=== PATIENT | male | born 1995 | race Caucasian/White ===

== ENCOUNTER 2018-01-02 01:59 | Inpatient (IN) | payer SELFPAY ==
[2018-01-02] MEDS ORDERED: methylPREDNISolone Sod Succ/PF 125 MG/2 ML VIAL IVP ONE (06:11)
--- NOTE | 2018-01-02 07:44 | HP ---
DATE OF ADMISSION: 01/02/2018. TIME OF EVALUATION: 5:40 a.m. CODE STATUS: FULL. PRIMARY CARE PHYSICIAN: No PCP. CHIEF COMPLAINT: Inability to breathe properly and drooling. HISTORY OF PRESENT ILLNESS: A 22 years old male patient with no significant past medical history. T he patient came to the hospital after having severe upper respiratory symptoms including inability to breathe properly, change in voice, associated with drooling, odynophagia, patient reporting that he was trying to find a throat infection by himself and since yesterday, he had the feeling that he was not able to breathe, he had wheezing through his throat, and he was unable to even swallow his saliva . The patient went to the ER, sleeping dose Decadron was given, antibiotics, clindamycin and has imp roved. ENT has been consulted and will see the patient for further recommendations. We will monitor the patient in IMCU since the patient has had significant recovery, had no other relieving factors t ceron the medical treatment. REVIEW OF SYSTEMS: Constitutional: The patient had fever, chills, generalized weakness. Respiratory: The patient had a change in voice, inability to swallow, drooling. Cardiovascular: No chest pain, palpitation, or shortness of breath. Gastrointestinal: No nausea, no vomiting, no diar antony, no abdominal pain. [employer]: No dizziness, headache or felt lightheaded. Genitourinary: No burni ng with urination. Extremities: No leg swelling. All other systems were reviewed and negative exce pt for the findings mentioned above. PAST MEDICAL HISTORY: As mentioned above. SOCIAL HISTORY: Lives with mother. PAST SURGICAL HISTORY: None reported. FAMILY HISTORY: Reviewed and noncontributory for current presentation. ALLERGIES: No known drug allergies. HOME MEDICATIONS: None. PHYSICAL EXAMINATION: VITAL SIGNS: On presentation, the patient had a blood pressure of 124/69 with a pulse of 64, respira tory rate was 20, oxygen saturation 99 on room air. GENERAL: Patient is alert, oriented, not in acute distress. HEENT: Eyes: Normal conjunctivae. Mucous oral mucosa. Anicteric. NECK: No JVD. RESPIRATORY: Bilateral air entry. No rales, no wheezing, no stridor, symmetric expansion. CARDIOVASCULAR: Normal rate, regular rhythm, no murmurs, no gallop. No edema. ABDOMEN: Soft, normal bowel sounds. MUSCULOSKELETAL: Baseline range of motion and strength. No tenderness. SKIN: Warm and intact. No pallor, no rash. NEUROLOGIC: No evidence of any new focal weakness, ____. Cranial nerves seem to be intact. PSYCHIATRIC: Good mood. He is alert and oriented to my judgment. IMAGING: CT was done prior to transfer. The patient has moderate epiglottitis and I have discussed with the ER physician. LABORATORY DATA: I have discussed with the ER physician where no significant ____. They are in the paper chart and transfer summary. ASSESSMENT AND PLAN: The patient was placed in IMCU due to life threatening. 1. Acute parotitis, patient has been treated on steroids and antibiotics. Symptoms have significant ly improved. We will continue antibiotics, ENT has been consulted with Dr. Hraris, we will follow re commendations. If patient continues to improve, likely to be able to be downgraded to the floor. 2. Deep venous thrombosis prophylaxis. The patient is ambulatory.
[2018-01-02] MEDS: cefTRIAXone\\ROCEPHIN 1 GM in Sodium Chloride 0.9% 100 ML IVPB SCH (08:06)
[2018-01-02] MEDS: Sodium Chloride 0.9% 1,000 ML IV SCH ×2 (08:06→16:22)
--- NOTE | 2018-01-02 09:14 | PDOC.PN ---
- Subjective Encounter Start Date: 01/02/18 Encounter Start Time: 09:13 Mr. Graham was seen today in follow-up of epiglottis. He says he feels better. He denies any sore throat. He denies dyspnea, and says he still has some trouble with swallowing. - Objective Resuscitation Status: Resuscitation Status FULL:Full Resuscitation MAR Reviewed: Yes Vital Signs & Weight: Vital Signs (12 hours) Temp Pulse Resp Pulse Ox 01/02/18 07:20 97.7 F 51 L 9 L 97 01/02/18 06:11 97.7 F Weight Weight 2.356 oz Phys Exam - Physical Examination HEENT: PERRLA, oral pharynx no lesions no stridor Respiratory: no wheezing, no rales, no rhonchi, clear to auscultation bilateral Cardiovascular: RRR, no significant murmur Gastrointestinal: soft, non-tender, positive bowel sounds Musculoskeletal: no edema Dx/Plan (1) Acute epiglottitis Code(s): J05.10 - ACUTE EPIGLOTTITIS WITHOUT OBSTRUCTION Status: Acute (2) Tinea corporis Code(s): B35.4 - TINEA CORPORIS Status: Acute - Plan * Acute Epiglottitis- he is improving with antibiotics, and Steroids Records from [facility] in [place] were reviewed * Will await ENT evaluation * With continued improvement, his status may be downgraded to medical later this evening. * Await repeat CBC, and BMP * Tinea Corporus- Nizoral cream
[2018-01-02] MEDS: Vancomycin HCl 1 GM in Premix Bag 1 BAG IVPB SCH ×2 (09:28→20:16)
--- NOTE | 2018-01-02 10:29 | CON ---
DATE OF CONSULTATION: 01/02/2018 SERVICE: Pulmonary Medicine. REASON FOR CONSULTATION: Upper airway inflammation. HISTORY OF PRESENT ILLNESS: The patient is a 22-year-old white male with past medical history signif icant for essentially nothing. He was in his usual state of health until he had onset of increasing swelling in the neck. He had a difficult time speaking, swallowing, and phonating. As such, he pres ented to the Emergency Department. He did not have any recent exposures. He was not having any feve rs or chills that precipitated this event. He was given Decadron, antibiotics, and epinephrine. Ult imately, swelling in his neck improved dramatically. He currently denies any chest pain, nausea, vom iting, fevers or chills. He is sleeping and breathing comfortably. I had him swallow some water at bedside. He did fantastic with that and had no significant drooling or dysphagia. Otherwise, there has been no interval change to his condition. PAST MEDICAL HISTORY: None. PAST SURGICAL HISTORY: Tonsillectomy. FAMILY HISTORY: Noncontributory. SOCIAL HISTORY: Negative for significant alcohol, tobacco or illicit drug use. He has no exposure t o chemicals, dusts, asbestos or tuberculosis. He has no known allergies to create these types of iss ues. ALLERGIES: No known drug allergies. MEDICATIONS: List of his inpatient medications were reviewed. No specific updates were made at this time. REVIEW OF SYSTEMS: General, head, ears, eyes, nose, throat, cardiovascular, respiratory, GI, , mus culoskeletal, neurologic and skin is negative except as mentioned in the HPI. PHYSICAL EXAMINATION: VITAL SIGNS: Afebrile, pulse 51, blood pressure 90/50, respirations 13, saturation 97% on room air. GENERAL: The patient is awake, alert, no apparent distress. LUNGS: There is excellent air entry. There are no problems with air movement in or out. There is n o wheezing, rhonchi, or crackles present. HEART: Bradycardic. Regular. ABDOMEN: Soft, nontender, nondistended. Bowel sounds are positive. MUSCULOSKELETAL: No cyanosis or clubbing. There is no pitting in the bilateral lower extremities. NEUROLOGIC: Grossly nonfocal. IMAGING: CT of the neck done prior to transfer demonstrated moderate epiglottitis. ASSESSMENT: 1. Epiglottitis, acute. 2. Dysphagia, associated with #1, resolved. PLAN: At this point, the patient can transition to the medical unit. He will need 1 additional day of observation. If he is doing well, he could be considered for transition home. At this point, the re is no impending respiratory failure identified. Certainly if this type of thing happens again, ad ditional evaluation may be warranted. Pulmonary will continue to follow if he remains in this locati on for any reason.
[2018-01-02] MEDS: Ketoconazole 2% Cream 15 gm Tube TOP SCH ×3 (11:39→20:17)
[2018-01-03] MEDS: Sodium Chloride 0.9% 1,000 ML IV SCH ×3 (02:15→22:15)
[2018-01-03] MEDS: cefTRIAXone\\ROCEPHIN 1 GM in Sodium Chloride 0.9% 100 ML IVPB SCH (05:30)
[2018-01-03 06:02] LABS: #Lymphocytes 2.8 thou/uL (1.20-3.40); #Monocytes 1.5 thou/uL (0.11-0.59); #Neutrophils 10.1 thou/uL (1.40-6.50); %Basophils 0.2 % (0.0-1.0); %Eosinophils 0.3 % (0.0-10.0); %Lymphocytes 19.3 % (21.0-51.0); %Monocytes 10.2 % (0.0-10.0); Mean Corpuscular HGB CONC 34.1 g/dL (32.0-36.0); Mean Corpuscular Hemoglobin 31.5 pg (27.0-31.0); Mean Corpuscular Volume 92.2 fL (78.0-98.0); Mean Platelet Volume 6.6 fL (7.4-10.4); Platelet Count 278 thou/uL (130-400); RBC Distribution Width 11.7 % (11.5-14.5); Red Blood Cell (RBC) Count 3.82 mill/uL (4.70-6.10); White Blood Cell (WBC) Count 14.4 thou/uL (4.8-10.8)
[2018-01-03 06:16] LABS: Anion Gap 10 mmol/L (10-20); BUN (Urea Nitrogen) 20 mg/dL (8.9-20.6); Calc. Creatinine Clearance 0 mL/min (70-130); Calcium 8.9 mg/dL (7.8-10.44); Carbon Dioxide 26 mmol/L (22-29); Chloride 106 mmol/L (98-107); Estimated GFR-MDRD Greater than 90; Glucose 100 mg/dL (70-105); Potassium 4.2 mmol/L (3.5-5.1); Sodium 138 mmol/L (136-145)
--- NOTE | 2018-01-03 08:05 | PDOC.PN ---
- Subjective Encounter Start Date: 01/03/18 Encounter Start Time: 08:03 Mr. Graham was seen today in follow-up of epiglottis. He says he had an episode of chocking last night. He still has throat pain when he tries to swallow. - Objective Resuscitation Status: Resuscitation Status FULL:Full Resuscitation MAR Reviewed: Yes Vital Signs & Weight: Vital Signs (12 hours) Temp Pulse Resp BP BP Pulse Ox 01/03/18 04:00 98.1 F 72 20 114/54 L 98 01/03/18 01:39 88 18 98 01/02/18 23:10 98.4 F 85 12 122/72 100 Weight Weight 2.356 oz Most Recent Monitor Data Heart Rate from ECG 52 NIBP 95/46 NIBP BP-Mean 77 Respiration from ECG 13 SpO2 98 I&O: 01/02/18 01/03/18 01/04/18 06:59 06:59 06:59 Intake Total 1300 Balance 1300 Result Diagrams: 01/03/18 05:43 01/03/18 05:43 Phys Exam - Physical Examination HEENT: PERRLA Respiratory: no wheezing, no rales, no rhonchi, clear to auscultation bilateral no stridor, patient's voice is clear. Cardiovascular: RRR, no significant murmur, no rub Gastrointestinal: soft, non-tender, positive bowel sounds Musculoskeletal: no edema Dx/Plan (1) Acute epiglottitis Code(s): J05.10 - ACUTE EPIGLOTTITIS WITHOUT OBSTRUCTION Status: Acute (2) Tinea corporis Code(s): B35.4 - TINEA CORPORIS Status: Acute - Plan * Acute epiglottitis- will continue IV antibiotics, and steroids * Will continue to monitor in the hospital * ENT was consulted, but will see patient only on emergent basis .
[2018-01-03] MEDS: Vancomycin HCl 1 GM in Premix Bag 1 BAG IVPB SCH ×3 (09:23→22:08)
[2018-01-03] MEDS: Ketoconazole 2% Cream 15 gm Tube TOP SCH ×2 (09:24→21:00)
[2018-01-03] MEDS: Saccharomyces boulardii 250 MG CAP PO SCH (09:24)
[2018-01-03] MEDS: Clindamycin/D5W 600 MG in Premix Bag 1 BAG IVPB SCH ×3 (12:20→20:40)
--- NOTE | 2018-01-03 20:28 | PRG ---
DATE OF SERVICE: 01/03/2018 SERVICE: Pulmonary Medicine. INTERVAL HISTORY: Overnight, the patient had an episode where he started having increasing respirato ry discomfort again. He got . This has essentially completely resolved that. Since last night , he has not had any additional events. He has been up walking the hallways all day today. Denies a ny current chest pain, nausea, vomiting, shortness of breath. His throat discomfort is actually impr oving a little bit. PHYSICAL EXAMINATION: VITAL SIGNS: Afebrile, pulse 77, blood pressure 109/65, respirations 20, saturation 97% on room air. GENERAL: Patient is awake, alert, no apparent distress. LUNGS: Excellent air entry with no prolonged expiratory phase, wheezing, rhonchi or crackles. There is no prolonged expiratory or inspiratory phase today. HEART: Normal rate, regular. ABDOMEN: Soft, nontender, nondistended. Bowel sounds are positive. MUSCULOSKELETAL: No cyanosis or clubbing. No pitting in the bilateral lower extremities. NEUROLOGIC: Grossly nonfocal. ASSESSMENT: 1. Epiglottitis, acute. 2. Dysphagia, associated with epiglottitis, resolved. DISCUSSION AND PLAN: The patient is going to be observed one more night. If remains stable until to [place], he can be considered for transition to p.o. medications and discharge from the hospital. Flynn cavazos will continue to follow while he remains in house.
[2018-01-03 20:59] LABS: Vancomycin, Trough 6.9 ug/mL
[2018-01-04] MEDS: Sodium Chloride 0.9% 1,000 ML IV SCH ×2 (01:10→10:04)
[2018-01-04] MEDS: Clindamycin/D5W 600 MG in Premix Bag 1 BAG IVPB SCH ×2 (02:23→10:04)
[2018-01-04] MEDS: Vancomycin HCl 1 GM in Premix Bag 1 BAG IVPB SCH (05:05)
[2018-01-04] MEDS: cefTRIAXone\\ROCEPHIN 1 GM in Sodium Chloride 0.9% 100 ML IVPB SCH (06:44)
--- NOTE | 2018-01-04 07:25 | PDOC.PN ---
- Subjective Encounter Start Date: 01/04/18 Encounter Start Time: :23 Mr. Graham says the swelling in her throat has improved He has been able to tolerate a full liquid diet - Objective Resuscitation Status: Resuscitation Status FULL:Full Resuscitation MAR Reviewed: Yes Vital Signs & Weight: Vital Signs (12 hours) Temp Pulse Resp BP Pulse Ox 01/03/18 21:00 97.8 F 72 18 110/78 97 01/03/18 20:00 97.8 F 72 18 98 Weight Weight 163 lb Most Recent Monitor Data Heart Rate from ECG 52 NIBP 95/46 NIBP BP-Mean 77 Respiration from ECG 13 SpO2 98 I&O: 01/03/18 01/04/18 01/05/18 06:59 06:59 06:59 Intake Total 1300 1200 Balance 1300 1200 Result Diagrams: 01/03/18 05:43 01/03/18 05:43 Phys Exam - Physical Examination HEENT: PERRLA, oral pharynx no lesions Respiratory: no wheezing, no rales, no rhonchi, clear to auscultation bilateral no stridor Cardiovascular: RRR, no significant murmur, no rub Dx/Plan (1) Acute epiglottitis Code(s): J05.10 - ACUTE EPIGLOTTITIS WITHOUT OBSTRUCTION Status: Acute (2) Tinea corporis Code(s): B35.4 - TINEA CORPORIS Status: Acute - Plan * Epiglottitis- improved * He is stable for discharge home this afternoon.
--- NOTE | 2018-01-04 07:47 | DIS ---
DATE OF ADMISSION: 01/02/2018 DATE OF DISCHARGE: 01/04/2018 PRIMARY CARE PHYSICIAN: The patient did not have a primary care physician. DISCHARGE DISPOSITION: Home. PRIMARY DISCHARGE DIAGNOSIS: Epiglottitis. DISCHARGE MEDICATIONS: Include clindamycin 300 mg 1 p.o. q.i.d. for 7 days as well as a Medrol Dosep ak and Florastor 250 mg daily for 30 days. PROCEDURES DONE DURING ADMISSION: The patient had a CT scan done at an outside facility prior to [facility], which showed some swelling in the epiglottis region without any melquiades obstruction. He was adm itted and started on IV antibiotics as well as IV steroids and racemic epinephrine as needed and over the course of the next couple of days, he improved to the point where he was stable, afebrile, able to swallow without difficulty and he will be discharged home on oral antibiotics as well as a Medrol Dosepak. He has been encouraged to follow up with a primary care physician and to get outpatient ENT evaluation and please note there was never any stridor on exam, the patient was able to talk without difficulty and also was able to tolerate a full liquid diet at the time of discharge.
[2018-01-04 09:39] VITALS: BP 128/77; TEMP 98
[2018-01-04] MEDS: Ketoconazole 2% Cream 15 gm Tube TOP SCH (10:04)
[2018-01-04] MEDS: Saccharomyces boulardii 250 MG CAP PO SCH (10:05)
== END 2018-01-04 10:05 | disposition home or self-care (01) | DRG 153 ==
LOC: ERS 01:59 → OBSVTOIN 03:13 → ERHOLD 03:13 → CCU 07:35 → ONC 11:26
PROVIDERS: ADMIT Hospitalist; ATTEND Hospitalist
DX: J05.10 Acute epiglottitis without obstruction (principal); B35.4 Tinea corporis; R13.10 Dysphagia, unspecified
CPT/HCPCS: 36415; 80048; 80202; 85025; 94640; 96360; 96361; J0696; J2920; J2930; J3370; J3490; J7050